=== PATIENT | female | born 1980 | race African-American/Black ===

== ENCOUNTER 2017-03-10 08:27 | Inpatient (IN) ==
[2017-03-10 08:59] LABS: HEMATOCRIT 22.4 % (37.0-47.0); MEAN CORPUSCULAR HEMOGLOBIN 14.8 pg (27.0-31.0); MEAN CORPUSCULAR HGB CONC 26.3 (31.8-35.4); MEAN CORPUSCULAR VOLUME 56.1 fl (81.0-99.0); PLATELET COUNT 329 10^3/uL (140-440); RED BLOOD COUNT 3.99 10^6/ul (4.20-5.40); WHITE BLOOD COUNT 7.09 K/ul (4.6-10.2)
[2017-03-10 09:04] LABS: HEMOGLOBIN 5.9 g/dl (12.0-16.0)
[2017-03-10 09:14] LABS: ALBUMIN 3.8 g/dL (3.4-5.0); ALBUMIN/GLOBULIN RATIO 1.27; ANION GAP 9.7; BILIRUBIN,TOTAL 0.44 mg/dL (0.00-1.20); BUN/CREATININE RATIO 15.51; CALCIUM 8.7 mg/dL (8.2-10.2); CREATININE 0.58 mg/dL (0.60-1.30); POTASSIUM 3.7 mmol/L (3.5-5.10); TOTAL PROTEIN 6.8 g/dL (6.4-8.2)
[2017-03-10 09:17] LABS: BILIRUBIN,URINE Negative (NEGATIVE); KETONES,URINE Negative (NEGATIVE); LEUKOCYTE ESTERASE ,URINE 3+ (NEGATIVE); NITRITE,URINE Negative (NEGATIVE); PH,URINE 6.5 (5-9); PROTEIN,URINE Negative (NEGATIVE); URINE, BLOOD Trace-intact (NEGATIVE)
[2017-03-10 09:18] LABS: ANISOCYTOSIS 2+ (NOT PRESENT); HYPOCHROMASIA 3+ (NOT PRESENT); MICROCYTOSIS 2+ (NOT PRESENT)
[2017-03-10 09:19] LABS: URINE PREGNANCY INTERNAL QC INTERNAL QC VALID
[2017-03-10 09:20] LABS: ADD URINE MICROSCOPIC YES
--- NOTE | 2017-03-10 10:09 | CT ---
EXAM: CT of the abdomen pelvis without contrast History: Abdominal pain. Comparison: CT abdomen pelvis 07/20/2016 Technique: Multiplanar CT images through the abdomen pelvis were obtained without the administratio n of IV contrast Findings: The intraventricular septum of the heart is visible suggesting anemia. Lung bases are fr ee of consolidation. No acute osseous abnormalities. No focal liver or splenic lesions. No discrete gallstones identified by CT. Small fat-containing u mbilical hernia, similar to the prior study. No tiffanie peripancreatic inflammation. No renal stones and no hydronephrosis. The appendix is not seen in its entirety but there are no secondary signs o f appendicitis. Stomach is not well distended. No bowel obstruction. No free air. No bladder wal l thickening. Small amount of pelvic free fluid. Adnexal structures are not well evaluated without contrast administration but demonstrate no grossly acute findings. Impression: 1. Small amount of fluid in the pelvis is nonspecific. 2. Small fat-containing umbilical hernia again noted. 3. The interventricular septum of the heart is visible suggesting anemia.
[2017-03-10 10:12] LABS: RETICULOCYTE % 0.77 %
--- NOTE | 2017-03-10 10:22 | ED.PDOC ---
General ED Provider: Dr. NGOZI MERRILL Chief Complaint: Abdominal Pain Stated Complaint: ABDOMINAL PAIN Time Seen by Physician: 08:30 (HISTORY OF ANEMIA) Mode of Arrival: Walk-In Information Source: Patient Exam Limitations: No limitations Nursing and Triage Documentation Reviewed and Agree: Yes GI Complaint Exam - Abdominal Pain Complaint/Exam Onset: Gradual Duration: 2 DAYS Symptoms Are: Still present Timing: Intermittent Initial Severity: Mild Current Severity: Mild Location of Pain: Suprapubic Character: Reports: Aching Aggravating: Reports: None Alleviating: Reports: None Associated Signs and Symptoms: Denies: Diaphoresis, Fever, Cough, Chest pain, Dizziness, Back pain, Constipation, Blood in stool, Dysuria, Urinary frequency, Decreased urine output, Decreased appetite, Vaginal bleeding, Vaginal discharge , Nausea, Vomiting, Diarrhea, Sore throat, Decreased activity Related History: Reports: Similar episode AAA Risk Factors: Reports: None Cardiac Risk Factors: Reports: None Ectopic Risk Factors: Reports: Maternal age >30 Ovarian Torsion Risk Factors: Reports: Ovarian cysts Surgical Obstruction Risk Factors: Reports: None Related Surgical History: Reports: None Patient Rh Status: Unknown Abdominal Findings: Present: None Differential Diagnoses: Appendicitis, Bowel Obstruction, Constipation, Gastroenteritis, Pancreatitis, Irritable Bowel Syndrome, Pneumonia, Renal Colic , Ureteral Stone, Ectopic , Ovarian Cyst Review of Systems - Review Of Systems Constitutional: Reports: No symptoms Eyes: Reports: No symptoms Ears, Nose, Mouth, Throat: Reports: No symptoms Respiratory: Reports: No symptoms Cardiac: Reports: No symptoms GI: Reports: Abdominal pain : Reports: No symptoms Musculoskeletal: Reports: No symptoms Skin: Reports: No symptoms Neurological: Reports: No symptoms Endocrine: Reports: No symptoms Hematologic/Lymphatic: Reports: No symptoms All Other Systems: Reviewed and Negative Past Medical History - Past Medical History Endocrine: Reports: Other (BLOOD TRANSFUSION) Cardiovascular: Reports: None Respiratory: Reports: None Hematological: Reports: None Gastrointestinal: Reports: None Genitourinary: Reports: Other Neuro/Psych: Reports: None Musculoskeletal: Reports: None Cancer: Reports: None Last Menstrual Period: 02/21 - Surgical History General Surgical History: Reports: Tubal ligation (later L tube and ovary (? right retied)), Other (LEFT OVARIES AND TUBE REMOVED DUE TO MASS THAT WAS FORMING INTO CANCER) - Family History Family History: Reports: Unknown - Social History Smoking Status: Current every day smoker, Light tobacco smoker Hx Substance Use: No Alcohol Screening: None Physical Exam - Physical Exam Appearance: Well-appearing, No pain distress, Well-nourished Eyes: CLOTILDE, EOMI, Conjunctiva clear ENT: Ears normal, Nose normal, Oropharynx normal Respiratory: Airway patent, Breath sounds clear, Breath sounds equal, Respirations nonlabored Cardiovascular: RRR, Pulses normal, No rub, No murmur GI/: Soft, Nontender, No masses, Bowel sounds normal, No Organomegaly Musculoskeletal: Normal strength, ROM intact, No edema, No calf tenderness Skin: Warm, Dry, Normal color Neurological: Sensation intact, Motor intact, Reflexes intact, Cranial nerves intact, Alert, Oriented Psychiatric: Affect appropriate, Mood appropriate Interpretation - Radiology Interpretation Radiology Interpretation By: Radiologist Radiology Results: No acute changes Physician Notification - Case Discussed Physician Notified: BETTE Time of Notification: 10:22 (ADMITT SAW PT IN THE ED ) Admit To: Inpatient Critical Care Note - Critical Care Note Total Time (mins): 0 Course - Course Hematology/Chemistry: 03/10/17 08:50 03/10/17 08:50 Orders, Labs, Meds: Lab Review 03/10/17 03/10/17 08:45 08:50 WBC 7.09 RBC 3.99 L Hgb 5.9 L* Hct 22.4 L MCV 56.1 L MCH 14.8 L MCHC 26.3 L RDW Coeff of Toña 24.5 H Plt Count 329 Reticulocyte % (Auto) 0.77 Neutrophils % (Manual) 68.0 Lymphocytes % (Manual) 31.0 Eosinophils % (Manual) 1.0 Microcytosis 2+ Absolute Retic 0.0306 Retic Hgb Equivalent 13.1 Sodium 138 Potassium 3.7 Chloride 107 Carbon Dioxide 25 Anion Gap 9.7 BUN 9 Creatinine 0.58 L Estimated GFR (MDRD) 143.00 BUN/Creatinine Ratio 15.51 Glucose 88 Calcium 8.7 Total Bilirubin 0.44 AST 13 L ALT 11 L Alkaline Phosphatase 42 Total Protein 6.8 Albumin 3.8 Globulin 3.0 Albumin/Globulin Ratio 1.27 Amylase 51 Lipase 22 Urine Color Yellow Urine Clarity Clear Urine pH 6.5 Ur Specific [place] 1.020 Urine Protein Negative Urine Glucose (UA) Negative Urine Ketones Negative Urine Blood Trace-intact Urine Nitrite Negative Urine Bilirubin Negative Urine Urobilinogen 0.2 Ur Leukocyte Esterase 3+ Urine Microscopic WBC 20-30 Ur Squamous Epith Cells 2-5 Urine Test Negative Orders Category Date Time Status ADMIT PATIENT INPATIENT .TO MEDSURG (MONITORED BED) ADMISSION 03/10/17 10: 06 Inactive EKG-(IP & OP ONLY) DAILY CARDIO 03/11/17 06:00 Stop Req EKG-(IP & OP ONLY) DAILY CARDIO 03/12/17 06:00 Stop Req EKG-(IP & OP ONLY) DAILY CARDIO 03/13/17 06:00 Stop Req TELEMETRY MONITORING TELE CARE 03/10/17 10:06 Inactive VITAL SIGNS Q8HR CARE 03/10/17 10:06 Inactive ED IV/MEDIPORT/POWERPORT .ONCE EMERGENCY 03/10/17 09:04 Completed AMYLASE Stat LAB 03/10/17 08:50 Completed CBC W/ AUTO DIFF DAILY@0600 LAB 03/11/17 06:00 Ordered CBC W/ AUTO DIFF DAILY@0600 LAB 03/12/17 06:00 Ordered CBC W/ AUTO DIFF DAILY@0600 LAB 03/13/17 06:00 Ordered CBC W/ AUTO DIFF DAILY@0600 LAB 03/14/17 06:00 Ordered CBC W/ AUTO DIFF DAILY@0600 LAB 03/15/17 06:00 Ordered CBC W/ AUTO DIFF DAILY@0600 LAB 03/16/17 06:00 Ordered CBC W/ AUTO DIFF DAILY@0600 LAB 03/17/17 06:00 Ordered CBC W/ AUTO DIFF DAILY@0600 LAB 03/18/17 06:00 Ordered CBC W/ AUTO DIFF DAILY@0600 LAB 03/19/17 06:00 Ordered CBC W/ AUTO DIFF DAILY@0600 LAB 03/20/17 06:00 Ordered CBC W/ AUTO DIFF DAILY@0600 LAB 03/21/17 06:00 Ordered CBC W/ AUTO DIFF DAILY@0600 LAB 03/22/17 06:00 Ordered CBC W/ AUTO DIFF DAILY@0600 LAB 03/23/17 06:00 Ordered CBC W/ AUTO DIFF DAILY@0600 LAB 03/24/17 06:00 Ordered CBC W/ AUTO DIFF DAILY@0600 LAB 03/25/17 06:00 Ordered CBC W/ AUTO DIFF DAILY@0600 LAB 03/26/17 06:00 Ordered CBC W/ AUTO DIFF DAILY@0600 LAB 03/27/17 06:00 Ordered CBC W/ AUTO DIFF DAILY@0600 LAB 03/28/17 06:00 Ordered CBC W/ AUTO DIFF DAILY@0600 LAB 03/29/17 06:00 Ordered CBC W/ AUTO DIFF DAILY@0600 LAB 03/30/17 06:00 Ordered CBC W/ AUTO DIFF Stat LAB 03/10/17 08:50 Completed COMPREHENSIVE METABOLIC PANEL DAILY@0600 LAB 03/11/17 06:00 Ordered COMPREHENSIVE METABOLIC PANEL DAILY@0600 LAB 03/12/17 06:00 Ordered COMPREHENSIVE METABOLIC PANEL DAILY@0600 LAB 03/13/17 06:00 Ordered COMPREHENSIVE METABOLIC PANEL DAILY@0600 LAB 03/14/17 06:00 Ordered COMPREHENSIVE METABOLIC PANEL DAILY@0600 LAB 03/15/17 06:00 Ordered COMPREHENSIVE METABOLIC PANEL DAILY@0600 LAB 03/16/17 06:00 Ordered COMPREHENSIVE METABOLIC PANEL DAILY@0600 LAB 03/17/17 06:00 Ordered COMPREHENSIVE METABOLIC PANEL DAILY@0600 LAB 03/18/17 06:00 Ordered COMPREHENSIVE METABOLIC PANEL DAILY@0600 LAB 03/19/17 06:00 Ordered COMPREHENSIVE METABOLIC PANEL DAILY@0600 LAB 03/20/17 06:00 Ordered COMPREHENSIVE METABOLIC PANEL DAILY@0600 LAB 03/21/17 06:00 Ordered COMPREHENSIVE METABOLIC PANEL DAILY@0600 LAB 03/22/17 06:00 Ordered COMPREHENSIVE METABOLIC PANEL DAILY@0600 LAB 03/23/17 06:00 Ordered COMPREHENSIVE METABOLIC PANEL DAILY@0600 LAB 03/24/17 06:00 Ordered COMPREHENSIVE METABOLIC PANEL DAILY@0600 LAB 03/25/17 06:00 Ordered COMPREHENSIVE METABOLIC PANEL DAILY@0600 LAB 03/26/17 06:00 Ordered COMPREHENSIVE METABOLIC PANEL DAILY@0600 LAB 03/27/17 06:00 Ordered COMPREHENSIVE METABOLIC PANEL DAILY@0600 LAB 03/28/17 06:00 Ordered COMPREHENSIVE METABOLIC PANEL DAILY@0600 LAB 03/29/17 06:00 Ordered COMPREHENSIVE METABOLIC PANEL DAILY@0600 LAB 03/30/17 06:00 Ordered COMPREHENSIVE METABOLIC PANEL Stat LAB 03/10/17 08:50 Completed FERRITIN Routine LAB 03/10/17 08:50 Received FOLATE Routine LAB 03/10/17 08:50 Received IRON AND TIBC Routine LAB 03/10/17 08:50 Received LIPASE Stat LAB 03/10/17 08:50 Completed MANUAL DIFFERENTIAL Stat LAB 03/10/17 08:50 Completed OCCULT BLOOD, STOOL Routine LAB 03/10/17 10:05 Uncollected RETIC COUNT Routine LAB 03/10/17 08:50 Completed TRANSFERRIN Routine LAB 03/10/17 08:50 Received URINALYSIS C & S IF INDICATED Stat LAB 03/10/17 08:45 Completed URINE CULTURE Stat LAB 03/10/17 08:45 Stop Req URINE Stat LAB 03/10/17 08:45 Completed VITAMIN B12 Routine LAB 03/10/17 08:50 Received 0.9 % Sodium Chloride [Saline Flush] MEDS 03/10/17 09:04 Discontinued 1 syr IVF PRN PRN Ceftriaxone Sodium [Rocephin] 1 gm MEDS 03/10/17 10:30 Discontinued 0.9 % Sodium Chloride [Sodium Chloride] 50 ml IV DAILY Sodium Chloride 0.9% [Sodium Chloride] 1,000 ml MEDS 03/10/17 10:30 Discontinued IV 75 mls/hr CT ABDOMEN/PELVIS WO CONTRAST Stat RADS 03/10/17 08:41 Completed Medications Discontinued Medications Generic Name Dose Route Start Last Admin Trade Name Freq PRN Reason Stop Dose Admin Sodium Chloride 1,000 mls @ 75 mls/hr 03/10/17 10:30 Sodium Chloride IV .[id number] YINA Ceftriaxone Sodium 1 gm/ 50 mls @ 75 mls/hr 03/10/17 10:30 Sodium Chloride IV DAILY YINA Sodium Chloride 1 syr 03/10/17 09:04 Saline Flush IVF PRN PRN To flush IV Vital Signs: Temp Pulse Resp BP Pulse Ox 03/10/17 08:28 98.0 F 75 20 105/63 99 Departure - Departure Time of Disposition: 10:23 Disposition: ADMITTED INPATIENT Discharge Problem: Abdominal pain Anemia Qualifiers: Anemia type: unspecified type Qualifier Code: (D64.9) Anemia, unspecified Instructions: Anemia (ED) Condition: Good Pt referred to PMD for follow-up: No Additional Instructions: Please call your Family Physician as soon as possible to schedule a follow-up appointment. Allergies/Adverse Reactions: Allergies No Known Allergies Allergy (Verified 03/10/17 08:36) Home Medications: Ambulatory Orders 1 [No Reported Medications] 07/20/16 Disposition Discussed With: Patient
[2017-03-10] MEDS ORDERED: SODIUM CHLORIDE 1,000 ML IV SCH (10:30)
[2017-03-10] MEDS ORDERED: ROCEPHIN 1 GM in SODIUM CHLORIDE 50 ML IV SCH (10:30)
[2017-03-10 11:15] LABS: FERRITIN 2.84 ng/mL (4.63-204.00); FOLATE 12.8 ng/mL (3.1-20.5)
[2017-03-10 11:30] VITALS: BMI 23.5
[2017-03-10] MEDS: PROTONIX PO SCH (13:29)
[2017-03-10] MEDS: SODIUM CHLORIDE 1,000 ML IV SCH (13:34)
[2017-03-10] MEDS ORDERED: SOLU-MEDROL 40 MG IVP STA (18:17)
[2017-03-10] MEDS ORDERED: TYLENOL PO STA (18:18)
[2017-03-10] MEDS ORDERED: BENADRYL 25 MG in SODIUM CHLORIDE 100 ML IV STA (18:18)
[2017-03-10] MEDS ORDERED: BENADRYL ONE (18:32)
[2017-03-11] MEDS: PROTONIX PO SCH (05:50)
[2017-03-11 15:16] LABS: BASOPHILS # (AUTO) 0.1 K/uL (0-0.2); BASOPHILS % (AUTO) 0.5 % (0.0-3.0); EOSINOPHILS # (AUTO) 0.1 K/ul (0.0-0.7); EOSINOPHILS % (AUTO) 0.7 % (0.0-7.0); HEMATOCRIT 32.5 % (37.0-47.0); HEMOGLOBIN 9.7 g/dl (12.0-16.0); IMMATURE GRANULOCYTE % (AUTO) 0.5 % (0.0-5.0); LYMPHOCYTES # (AUTO) 2.9 K/uL (0.60-3.4); LYMPHOCYTES % (AUTO) 22.1 (10.0-50.0); MEAN CORPUSCULAR HEMOGLOBIN 18.8 pg (27.0-31.0); MEAN CORPUSCULAR HGB CONC 29.8 (31.8-35.4); MONOCYTES # (AUTO) 1.3 K/uL (0.4-2.0); MONOCYTES % (AUTO) 10.1 (0-10); NEUTROPHILS # (AUTO) 8.8 K/ul (2.0-6.9); NEUTROPHILS % (AUTO) 66.1; PLATELET COUNT 249 10^3/uL (140-440); RED BLOOD COUNT 5.16 10^6/ul (4.20-5.40); WHITE BLOOD COUNT 13.25 K/ul (4.6-10.2)
[2017-03-11 15:25] LABS: ANISOCYTOSIS 1+ (NOT PRESENT); HYPOCHROMASIA 2+ (NOT PRESENT); MICROCYTOSIS 1+ (NOT PRESENT); POIKILOCYTOSIS 1+ (NOT PRESENT)
[2017-03-11] MEDS: SODIUM CHLORIDE 1,000 ML IV SCH (15:25)
[2017-03-11 15:34] LABS: ALBUMIN 3.9 g/dL (3.4-5.0); ALBUMIN/GLOBULIN RATIO 1.22; ANION GAP 10.4; BILIRUBIN,TOTAL 1.52 mg/dL (0.00-1.20); CREATININE 0.65 mg/dL (0.60-1.30); POTASSIUM 3.4 mmol/L (3.5-5.10); TOTAL PROTEIN 7.1 g/dL (6.4-8.2)
[2017-03-11 15:37] LABS: OCCULT BLOOD INTERNAL QC 1 INTERNAL QC VALID; OCCULT BLOOD SAMPLE 1 NEGATIVE (NEGATIVE)
[2017-03-12 01:57] LABS: OCCULT BLOOD INTERNAL QC 2 INTERNAL QC VALID; OCCULT BLOOD INTERNAL QC 3 INTERNAL QC VALID; OCCULT BLOOD SAMPLE 2 NO SPECIMEN RECEIVED (NEGATIVE); OCCULT BLOOD SAMPLE 3 NO SPECIMEN RECEIVED (NEGATIVE)
[2017-03-12 04:51] LABS: BASOPHILS # (AUTO) 0.1 K/uL (0-0.2); EOSINOPHILS # (AUTO) 0.1 K/ul (0.0-0.7); EOSINOPHILS % (AUTO) 1.7 % (0.0-7.0); HEMATOCRIT 29.9 % (37.0-47.0); HEMOGLOBIN 8.9 g/dl (12.0-16.0); IMMATURE GRANULOCYTE % (AUTO) 0.6 % (0.0-5.0); LYMPHOCYTES # (AUTO) 2.4 K/uL (0.60-3.4); LYMPHOCYTES % (AUTO) 29.2 (10.0-50.0); MEAN CORPUSCULAR HEMOGLOBIN 18.7 pg (27.0-31.0); MEAN CORPUSCULAR HGB CONC 29.8 (31.8-35.4); MEAN CORPUSCULAR VOLUME 62.9 fl (81.0-99.0); MONOCYTES # (AUTO) 0.7 K/uL (0.4-2.0); MONOCYTES % (AUTO) 8.3 (0-10); NEUTROPHILS # (AUTO) 4.9 K/ul (2.0-6.9); NEUTROPHILS % (AUTO) 59.2; PLATELET COUNT 182 10^3/uL (140-440); RED BLOOD COUNT 4.75 10^6/ul (4.20-5.40)
[2017-03-12 05:21] LABS: ALBUMIN 3.5 g/dL (3.4-5.0); ALBUMIN/GLOBULIN RATIO 1.25; ANION GAP 8.5; BILIRUBIN,TOTAL 0.8 mg/dL (0.00-1.20); BUN/CREATININE RATIO 18.75; CALCIUM 8.3 mg/dL (8.2-10.2); CREATININE 0.64 mg/dL (0.60-1.30); POTASSIUM 3.5 mmol/L (3.5-5.10); TOTAL PROTEIN 6.3 g/dL (6.4-8.2)
[2017-03-12] MEDS: PROTONIX PO SCH (06:06)
[2017-03-12 09:38] VITALS: BP 105/75; TEMP 97.9
--- NOTE | 2017-03-15 15:38 | PN ---
DATE OF SERVICE: 03/11/17 SUBJECTIVE: The patient was admitted with hgb of 5.9 and heavy menstrual bleeding. The patient had antibodies in the blood so we had to get the blood from the [facility] after checking the antibody details. We have given two units so far and one unit is running. Not weak or tired and abdominal pain is better. REVIEW OF SYSTEMS: CONSTITUTIONAL: No fever, no chills. HEENT: Normal. ENDOCRINE: No weight gain, no weight loss. CVS: No angina symptoms. No CHF symptoms. No palpitations. No atypical chest pain for CAD. No shortness of breath. No PND, no orthopnea. RESPIRATORY: No cough, no hemoptysis. GI: No nausea, no vomiting. No abdominal pain. : No hematuria. No polyuria. MUSCULOSKELETAL:. No joint swelling. PSYCHIATRIC: Not anxious. No depression. No suicidal thoughts. No homicidal thoughts. SKIN: Intact. No rash. PHYSICAL EXAMINATION: V/S: blood pressure 110/67, respiratory rate 18, heart rate 68 and temperature 97.5. HEENT: Normocephalic, atraumatic. Mucosa dry. Pallor positive. No icterus. NECK: Supple. No JVD, no carotid bruit. No lymphadenopathy. LUNGS: Decreased and Clear to auscultation. No rales or rhonchi. HEART: S1, S2 normal. No S3. No murmur, gallop or regurgitation. ABDOMEN: Soft, nontender. Bowel sounds active. No rigidity. No rebound or guarding. No CVA tenderness. EXTREMITIES: No clubbing, cyanosis or pedal edema. MUSCULOSKELETAL: No joint swelling. NEUROLOGIC: Awake, alert, oriented times three. No focal deficit. LYMPHATIC: No lymph nodes palpable. SKIN: Intact. Dry. LABS: Sodium 138, potassium 3.7, chloride 107, bicarb 27, BUN 9, creatinine 0.58, WBC 7.09, hgb 5.9, hct 22.4 and plt count 329. ASSESSMENT: 1. Severe symptomatic anemia 2. Heavy menstrual bleeding, history, getting blood transfusion 3. History of Ovarian cancer 4. Tubal ligation 5. Chronic headaches 6. Nicotine use PLAN: 1. Hgb and Hct 2. Out of bed to chair 3. IV fluids Will follow the patient in daily rounds. TIME SPENT: More than 30 minutes MTDD
--- NOTE | 2017-03-17 07:20 | HP ---
DATE OF SERVICE: 03/10/17 CHIEF COMPLAINT: Abdominal pain. HISTORY OF PRESENT ILLNESS: This is a 36-year-old female with history of anemia, who came to the emergency room with 3 to 4 days onset of lower abdominal pain, lower part of belly. No nausea or vomiting. No diarrhea. Had some burning and frequency of urination. Dr. Dickerson saw the patient and in the process of evaluation her hemoglobin was 5.9. On further questioning she did say that she was here late last year in July for abdominal pain and found to have severe anemia and menorrhagia was the diagnosis. She was supposed to see Dr. Mccord but she did not have any followup with her. She is still having heavy menstrual cycles when we asked her. No dizziness. No chest pain. No PND, no orthopnea. At that time, the patient is admitted to the hospital for blood transfusion and urinary tract infection. REVIEW OF SYSTEMS: CONSTITUTIONAL: Weakness. No fever, no chills. HEENT: Normal. ENDOCRINE: No weight gain; no weight loss. CVS: No chest pain. No PND, no orthopnea. No shortness of breath. No PND, no orthopnea. RESPIRATORY: No cough, no congestion. No hemoptysis. GI: Abdominal pain. No nausea or vomiting. : Frequency of urination and burning. No hematuria. MUSCULOSKELETAL: No joint swelling. PSYCHIATRIC: Not anxious. No depression. No suicidal thoughts. No homicidal thoughts. SKIN: Intact, no open lesions. PAST MEDICAL HISTORY: 1. Headaches 2. History of ovarian cancer PAST SURGICAL HISTORY: 1. Tubal ligation PERSONAL HISTORY: Does smoke. No alcohol use. No drug use. FAMILY HISTORY: Significant for breast cancer and cervical cancer. MEDICATIONS: (HOME) None ALLERGIES: NKDA PHYSICAL EXAMINATION: V/S: BP 105/63, respiratory rate 20, heart rate 75, temperature 98.0. HEENT: Atraumatic, normocephalic. No scleral icterus. Mucosa dry. Pallor positive. NECK: Supple. No JVD, no bruit. No lymphadenopathy. No thyromegaly. HEART: S1, S2 normal. No murmur. No cyanosis or clubbing. No ascites. LUNGS: Decreased breath sounds. Clear to auscultation. No rales or rhonchi. ABDOMEN: Soft with suprapubic tenderness present. Bowel sounds are active. No CVA tenderness. No rigidity or guarding. EXTREMITIES: No cyanosis, clubbing or pedal edema. MUSCULOSKELETAL: Normal joints, no swelling. SKIN: Intact; no open lesions. LYMPHATIC: No lymph nodes palpable. LABS: White count is 7.09, hemoglobin is 5.9, hematocrit 22.5, platelet count 329. Urine leukocyte esterace is positive. Nitrites negative. ASSESSMENT: 1. Severe anemia, rule out GI bleed, most likely from heavy menstrual cycle. 2. Urinary tract infection. 3. History of headaches. PLAN: 1. Admit the patient to the regular floor. 2. Type and crossmatch 3 units and transfuse three. 3. Protonix 40 mg p.o. daily. 4. Anemia profile. 5. Occult blood test. 6. IV fluids at 40 mL/hr. 7. I will follow with the patient in daily rounds. TIME SPENT: More than 70 minutes today. MARIAH
--- NOTE | 2017-03-23 13:40 | DS ---
DATE OF SERVICE: 03/12/17 FINAL DIAGNOSIS: 1. SEVERE PNEUMONIA STATUS POST 3 UNITS PRBC TRANSFUSION 2. MENORRHAGIA PENDING HYSTERECTOMY 3. HISTORY OF NICOTINE USE 4. HISTORY OF HEADACHES DISCHARGE INSTRUCTIONS: 1. Discharge the patient home 2. Iron pills three times a day 3. Followup at the [facility] for referral to [facility] for hysterectomy MEDICATIONS AT DISCHARGE: None NEW PRESCRIPTIONS: Iron pills t.i.d. DIET INSTRUCTIONS: Regular ACTIVITY: As much as tolerated SMOKING: N/A DISEASE SPECIFIC EDUCATION: Anemia and iron pills discussed, verbalized understanding. HOSPITAL COURSE: This is a 36-year-old female who came to the emergency room with weakness, tiredness and abdominal pain, found to have hemoglobin of 5.9. On further questioning, the patient has a history of severe bleed during menstruation and she is supposed to go to [facility] and have hysterectomy done. The patient did not have insulin so she did not go and see any [facility] but for the last one week she has been feeling weak, tired, light-headed with abdominal pain. She came to the emergency room and found to have hemoglobin of 5.9. CT was negative for any acute changes. At that time, she is admitted to the hospital and typed and crossed, screened, transfused 3. The patient did have antibodies which are K antibodies so we have to wait for some time to get blood from [facility]. After three units of blood transfusion, hemoglobin went up to 9.7 then came down today to 8.9. Otherwise the patient has clinically improved alot, not weak anymore, not pale looking anymore. The patient understands the importance of having gynecological followup and having hysterectomy. The patient will be scheduled followup at the [facility] and will be scheduled for evaluation for hysterectomy with [facility]. TIME SPENT: More than 55 minutes today MARIAH
== END 2017-03-12 12:33 | disposition home or self-care (01) | DRG 812 ==
LOC: ED 08:27 → MEDSURG B 10:44
PROVIDERS: ADMIT Emergency Medicine; ATTEND Emergency Medicine
PROC: 30233N1 Transfusion of Nonautologous Red Blood Cells into Peripheral Vein, Percutaneous Approach (ICD-10-PCS; principal; 2017-03-10)
PROC: 30233N1 Transfusion of Nonautologous Red Blood Cells into Peripheral Vein, Percutaneous Approach (ICD-10-PCS; 2017-03-11)
PROC: 30233N1 Transfusion of Nonautologous Red Blood Cells into Peripheral Vein, Percutaneous Approach (ICD-10-PCS; 2017-03-11)
DX: D64.9 Anemia, unspecified (principal); R10.30 Lower abdominal pain, unspecified; N92.0 Excessive and frequent menstruation with regular cycle; R51 Headache; Z72.0 Tobacco use; Z86.2 Personal history of diseases of the blood and blood-forming organs and certain disorders involving the immune mechanism; Z85.43 Personal history of malignant neoplasm of ovary; Z80.3 Family history of malignant neoplasm of breast
CPT/HCPCS: 36415; 36430; 80053; 81001; 81025; 82150; 82272; 82607; 82728; 82746; 83540; 83550; 83690; 84466; 85007; 85008; 85025; 85045; 86850; 86880; 86900; 86922; 87086; 99223; 99233; 99239; 99284

== ENCOUNTER 2017-03-23 11:41 | Outpatient (CLI) ==
[2017-03-23 13:23] LABS: BASOPHILS # (AUTO) 0.1 K/uL (0-0.2); BASOPHILS % (AUTO) 1.1 % (0.0-3.0); EOSINOPHILS # (AUTO) 0.4 K/ul (0.0-0.7); EOSINOPHILS % (AUTO) 4.1 % (0.0-7.0); HEMATOCRIT 29.4 % (37.0-47.0); HEMOGLOBIN 8.4 g/dl (12.0-16.0); IMMATURE GRANULOCYTE % (AUTO) 0.6 % (0.0-5.0); LYMPHOCYTES # (AUTO) 2.1 K/uL (0.60-3.4); LYMPHOCYTES % (AUTO) 19.8 (10.0-50.0); MEAN CORPUSCULAR HGB CONC 28.6 (31.8-35.4); MONOCYTES # (AUTO) 0.7 K/uL (0.4-2.0); MONOCYTES % (AUTO) 6.9 (0-10); NEUTROPHILS # (AUTO) 7.1 K/ul (2.0-6.9); NEUTROPHILS % (AUTO) 67.5; PLATELET COUNT 285 10^3/uL (140-440); WHITE BLOOD COUNT 10.47 K/ul (4.6-10.2)
[2017-03-23 14:05] LABS: ANISOCYTOSIS 3+ (NOT PRESENT); HYPOCHROMASIA 2+ (NOT PRESENT); MICROCYTOSIS 2+ (NOT PRESENT); POIKILOCYTOSIS 2+ (NOT PRESENT); POLYCHROMASIA 1+ (NOT PRESENT); SCHISTOCYTES 1+ (NOT PRESENT)
[2017-03-23 14:11] LABS: ALBUMIN 3.6 g/dL (3.4-5.0); ALBUMIN/GLOBULIN RATIO 1.09; ANION GAP 13.8; BILIRUBIN,TOTAL 0.15 mg/dL (0.00-1.20); BUN/CREATININE RATIO 11.47; CALCIUM 8.9 mg/dL (8.2-10.2); CHOL/HDL RATIO 2.6 (4.5-5.5); CREATININE 0.61 mg/dL (0.60-1.30); POTASSIUM 3.8 mmol/L (3.5-5.10); TOTAL PROTEIN 6.9 g/dL (6.4-8.2)
== END 2017-03-23 11:42 | disposition home or self-care (01) ==
LOC: LAB 11:41
PROVIDERS: ATTEND Nurse Practitioner Family
DX: D64.9 Anemia, unspecified (principal); Z72.0 Tobacco use
CPT/HCPCS: 36415; 80053; 80061; 84443; 85008; 85025

== ENCOUNTER 2017-04-26 12:36 | Outpatient (CLI) ==
[2017-04-26 13:51] LABS: BASOPHILS # (AUTO) 0.1 K/uL (0-0.2); EOSINOPHILS # (AUTO) 0.2 K/ul (0.0-0.7); EOSINOPHILS % (AUTO) 2.1 % (0.0-7.0); HEMATOCRIT 26.8 % (37.0-47.0); HEMOGLOBIN 7.8 g/dl (12.0-16.0); IMMATURE GRANULOCYTE % (AUTO) 0.6 % (0.0-5.0); LYMPHOCYTES % (AUTO) 17.6 (10.0-50.0); MEAN CORPUSCULAR HGB CONC 29.1 (31.8-35.4); MEAN CORPUSCULAR VOLUME 65.2 fl (81.0-99.0); MONOCYTES # (AUTO) 0.9 K/uL (0.4-2.0); MONOCYTES % (AUTO) 7.7 (0-10); NEUTROPHILS # (AUTO) 7.9 K/ul (2.0-6.9); PLATELET COUNT 462 10^3/uL (140-440); RED BLOOD COUNT 4.11 10^6/ul (4.20-5.40); WHITE BLOOD COUNT 11.06 K/ul (4.6-10.2)
[2017-04-26 15:05] LABS: HYPOCHROMASIA 2+ (NOT PRESENT); MICROCYTOSIS 3+ (NOT PRESENT); POIKILOCYTOSIS 2+ (NOT PRESENT); POLYCHROMASIA 1+ (NOT PRESENT)
[2017-04-26 15:08] LABS: ANISOCYTOSIS 1+ (NOT PRESENT)
== END 2017-04-26 12:37 | disposition home or self-care (01) ==
LOC: LAB 12:36
PROVIDERS: ATTEND Nurse Practitioner Family
DX: D64.9 Anemia, unspecified (principal)
CPT/HCPCS: 36415; 85008; 85025; 86850; 86880; 86900; 86922

== ENCOUNTER 2017-04-26 17:27 | Outpatient (CLI) | END 2017-04-26 17:28 | disposition home or self-care (01) | LOC: OUTPT 17:27 → LAB 17:28 | PROVIDERS: ATTEND Emergency Medicine | DX: D64.9 Anemia, unspecified (principal) | CPT/HCPCS: 36415; 86850; 86880; 86900; 86922 ==

== ENCOUNTER 2017-04-28 09:53 | Outpatient (CLI) ==
[2017-04-28 14:27] VITALS: BP 102/62; TEMP 98.1
== END 2017-04-28 09:54 | disposition home or self-care (01) ==
LOC: OUTPT 09:53
PROVIDERS: ATTEND Emergency Medicine
DX: D64.9 Anemia, unspecified (principal)
CPT/HCPCS: 36415; 36430; 86850; 86880; 86900; 86922; 96365; 96366

== ENCOUNTER 2017-05-10 15:40 | Outpatient (CLI) ==
[2017-05-10 15:56] LABS: BASOPHILS # (AUTO) 0.1 K/uL (0-0.2); BASOPHILS % (AUTO) 0.7 % (0.0-3.0); EOSINOPHILS # (AUTO) 0.3 K/ul (0.0-0.7); EOSINOPHILS % (AUTO) 3.1 % (0.0-7.0); IMMATURE GRANULOCYTE % (AUTO) 0.4 % (0.0-5.0); LYMPHOCYTES % (AUTO) 27.1 (10.0-50.0); MEAN CORPUSCULAR HEMOGLOBIN 19.1 pg (27.0-31.0); MEAN CORPUSCULAR HGB CONC 28.6 (31.8-35.4); MONOCYTES # (AUTO) 0.7 K/uL (0.4-2.0); MONOCYTES % (AUTO) 6.6 (0-10); NEUTROPHILS # (AUTO) 6.8 K/ul (2.0-6.9); NEUTROPHILS % (AUTO) 62.1; RED BLOOD COUNT 4.18 10^6/ul (4.20-5.40); WHITE BLOOD COUNT 11.01 K/ul (4.6-10.2)
[2017-05-10 16:07] LABS: ANISOCYTOSIS 3+ (NOT PRESENT); HYPOCHROMASIA 2+ (NOT PRESENT); MICROCYTOSIS 3+ (NOT PRESENT); PLATELET COUNT 168 10^3/uL (140-440); POLYCHROMASIA 2+ (NOT PRESENT)
== END 2017-05-10 15:41 | disposition home or self-care (01) ==
LOC: LAB 15:40
PROVIDERS: ATTEND Nurse Practitioner Family
DX: D64.9 Anemia, unspecified (principal)
CPT/HCPCS: 36415; 85008; 85025

== ENCOUNTER 2017-05-23 10:51 | Outpatient (CLI) ==
--- NOTE | 2017-05-23 11:27 | DI ---
EXAM: Three views of the cervical spine HISTORY: Pain post fall. COMPARISON: None FINDINGS: There is no acute compression fracture or subluxation. There is mild straightening of the cervical spine. Facets and posterior processes are normal. The odontoid process is unremarkable. There is no lytic or blastic lesion. IMPRESSION: Mild straightening of the cervical spine with no acute abnormality or compression fract ure.
--- NOTE | 2017-05-23 11:28 | DI ---
EXAM: Three views of the lumbar spine HISTORY: Pain post fall. COMPARISON: None FINDINGS: There is no acute compression fracture or subluxation. Lumbosacral junction is intact. T here is no lytic or blastic lesion. Facets and posterior processes are unremarkable. Soft tissues are normal. IMPRESSION: No acute compression fracture or subluxation.
--- NOTE | 2017-05-23 11:28 | DI ---
EXAM: Views of the thoracic spine HISTORY: Fall TECHNIQUE: AP lateral views and swimmers lateral of the thoracic spine were obtained. FINDINGS: No acute fractures are seen. The alignment is normal. The intervertebral discs demonstr ate normal height. The paraspinal soft tissues are normal. IMPRESSION: No evidence of acute fracture seen within the thoracic spine.
--- NOTE | 2017-05-23 11:29 | DI ---
EXAM: Right hip two-view HISTORY: Pain, fall COMPARISON: None FINDINGS: The bones are normal. The hip joint is normal. No focal soft tissue abnormality. IMPERSSION: Normal examination.
== END 2017-05-23 10:52 | disposition home or self-care (01) ==
LOC: RAD 10:51
PROVIDERS: ATTEND Nurse Practitioner Family
DX: M54.6 Pain in thoracic spine (principal); M54.5 Low back pain; M54.2 Cervicalgia; M25.551 Pain in right hip; W19.XXXA Unspecified fall, initial encounter

== ENCOUNTER 2017-11-11 10:43 | Emergency (ER) ==
[2017-11-11 10:57] VITALS: BP 117/69; TEMP 97.2; BMI 23.1
--- NOTE | 2017-11-11 11:34 | ED.PDOC ---
General ED Provider: Dr. DEON MCADAMS Chief Complaint: Vaginal Bleeding Stated Complaint: Pt is a 37 year old female who comes to the ER with chronic abnormal vaginal bleeding. States has been bleeding x 14 days however bleeing stopped this AM. She comes in because she is concerned that she. She also complains of feet swelling. Missed an OBGYN Apt at [facility]. She moved to the area reacently. Has had partial hystorectomy on the left due to large ovarian cyst. Admits to Diet high in processed foods/ sodium. States until yesterday she has been using 5 Tampoons per day for 14 days. Time Seen by Physician: 11:31 Mode of Arrival: Walk-In Information Source: Patient Exam Limitations: No limitations [facility] Nursing and Triage Documentation Reviewed and Agree: Yes Reviewed sepsis parameters & appropriate labs ordered?: Yes System Inflammatory Response Syndrome: Not Applicable Sepsis Protocol: For patient's 13 years and over: Temp is 96.8 and below OR 101 and greater Pulse >90 BPM Resp >20/minute Acutely Altered Mental Status Are patient's symptoms suggestive of a new infection, such as: -Pneumonia -Skin, Soft Tissue -Endocarditis -UTI -Bone, Joint Infection -Implantable Device -Acute Abdominal Infection -Wound Infection -Meningitis -Blood Stream Catheter Infection -Unknown Musculoskeletal Complaint Exam - Lower Extremity Complaint/Exam Location of Pain: Reports: Ankle, Leg Mechanism of Injury: Reports: No known trauma Onset/Duration: 1 week Symptoms Are: Still present Location: Reports: Diffuse Alleviating: Reports: None Aggravating: Reports: None Able to Bear Weight: Yes Associated Signs and Symptoms: Reports: Swelling DVT Risk Factors: Reports: None Septic Arthritis Risk Factors: Reports: None Related Surgical History: Reports: None Lower Extremity Findings: Present: Swelling (bilateral. ) NV Bundle Intact Distal to Injury: No Compartment Syndrome Risk Factors: Absent: Pain, Paralysis, Pallor, Pulselessness, Paresthesias Differential Diagnoses: Other (Edema ) Review of Systems - Review Of Systems Constitutional: Reports: Weakness Eyes: Reports: No symptoms Ears, Nose, Mouth, Throat: Reports: No symptoms Respiratory: Reports: No symptoms Cardiac: Reports: No symptoms GI: Reports: No symptoms : Reports: No symptoms Musculoskeletal: Reports: Joint swelling Skin: Reports: No symptoms Neurological: Reports: No symptoms Endocrine: Reports: No symptoms Hematologic/Lymphatic: Reports: No symptoms All Other Systems: Reviewed and Negative Past Medical History - Past Medical History Endocrine: Reports: Other (BLOOD TRANSFUSION) Cardiovascular: Reports: None Respiratory: Reports: None Hematological: Reports: None Gastrointestinal: Reports: None Genitourinary: Reports: Other (Dysfunctional Uterine bleeding. ) Neuro/Psych: Reports: None Musculoskeletal: Reports: None Cancer: Reports: None Last Menstrual Period: 2 WEEKS - Surgical History General Surgical History: Reports: Tubal ligation (later L tube and ovary (? right retied)), Other (LEFT OVARIES AND TUBE REMOVED DUE TO MASS THAT WAS FORMING INTO CANCER) - Family History Family History: Reports: Unknown - Social History Smoking Status: Current every day smoker, Light tobacco smoker Hx Substance Use: No Alcohol Screening: None Physical Exam - Physical Exam Appearance: Ill-appearing Ill-appearing: Mild Eyes: Conjunctiva pale Neck: Supple Respiratory: Airway patent, Breath sounds clear, Breath sounds equal, Respirations nonlabored Cardiovascular: RRR, Pulses normal, No rub, No murmur GI/: Soft, Nontender, No masses, Bowel sounds normal, No Organomegaly Musculoskeletal: ROM intact, Edema Skin: Warm, Dry Neurological: Sensation intact, Motor intact, Reflexes intact Psychiatric: Anxious Critical Care Note - Critical Care Note Total Time (mins): 0 Course - Course Hematology/Chemistry: 11/11/17 11:30 11/11/17 11:30 Orders, Labs, Meds: Lab Review 11/11/17 11/11/17 11:30 11:30 WBC 8.06 RBC 3.11 L Hgb 4.6 L* Hct 17.9 L* MCV 57.6 L MCH 14.8 L MCHC 25.7 L RDW Coeff of Toña 22.2 H Plt Count 156 Immature Gran % (Auto) 0.4 Neut % (Auto) 69.9 Lymph % (Auto) 20.7 [place]berry % (Auto) 6.3 Eos % (Auto) 2.1 Baso % (Auto) 0.6 Immature Gran # (Auto) 0.0 Neut # 5.6 Lymph # 1.7 Newberry # 0.5 Eos # 0.2 Baso # 0.1 Hypochromasia 3+ Anisocytosis 2+ Microcytosis 3+ Sodium 140 Potassium 3.2 L Chloride 110 H Carbon Dioxide 25 Anion Gap 8.2 BUN 6 L Creatinine 0.57 L Estimated GFR (MDRD) 145.00 BUN/Creatinine Ratio 10.52 Glucose 98 Calcium 8.6 Total Bilirubin < 0.3 AST 14 L ALT 11 L Alkaline Phosphatase 49 Total Protein 6.3 L Albumin 3.3 L Globulin 3.0 Albumin/Globulin Ratio 1.10 Orders Category Date Time Status ADMIT PATIENT INPATIENT .TO [facility] (MONITORED BED) ADMISSION 11/11/17 11: 58 Active ACTIVITY .Up ad Shahnaz CARE 11/11/17 11:59 Active INTAKE & OUTPUT Q8HR CARE 11/11/17 11:58 Active TELEMETRY MONITORING TELE CARE 11/11/17 11:59 Active VITAL SIGNS Q4HR CARE 11/11/17 11:59 Active VTE PREVENTION .SCD On AM/Off PM CARE 11/11/17 11:58 Active REGULAR DIET DIETARY 11/11/17 Lunch Ordered BASIC METABOLIC PANEL DAILY@0600 LAB 11/12/17 06:00 Ordered BASIC METABOLIC PANEL DAILY@0600 LAB 11/13/17 06:00 Ordered CBC W/ AUTO DIFF DAILY@0600 LAB 11/12/17 06:00 Ordered CBC W/ AUTO DIFF DAILY@0600 LAB 11/13/17 06:00 Ordered CBC W/ AUTO DIFF Stat LAB 11/11/17 11:30 Completed CMP [COMPREHENSIVE METABOLIC PANEL] Stat LAB 11/11/17 11:30 Completed PACKED CELLS Stat LAB 11/11/17 12:18 Received RBC MORPHOLOGY Stat LAB 11/11/17 11:30 Completed Acetaminophen [Tylenol] MEDS 11/11/17 11:58 Active 650 mg PO Q4H PRN Diphenhydramine Inj [Benadryl] MEDS 11/11/17 11:58 Active 25 mg IVP ONCE PRN Furosemide [Lasix] MEDS 11/11/17 11:58 Active 20 mg IVP PRN PRN Ondansetron HCl/Pf [Zofran 4 mg/2 ml] MEDS 11/11/17 11:58 Active 4 mg IVP Q6H PRN RESUSCITATION STATUS Routine OTHERS 11/11/17 11:58 Ordered Medications Generic Name Dose Route Start Last Admin Trade Name Freq PRN Reason Stop Dose Admin Acetaminophen 650 mg 11/11/17 11:58 Tylenol PO Q4H PRN Fever > 102 Diphenhydramine HCl 25 mg 11/11/17 11:58 Benadryl IVP ONCE PRN Transfusion reaction Furosemide 20 mg 11/11/17 11:58 Lasix IVP PRN PRN AFTER EVERY UNIT OF BLOOD Ondansetron HCl 4 mg 11/11/17 11:58 Zofran 4 Mg/2 Ml IVP Q6H PRN Nausea/vomiting. Vital Signs: Temp Pulse Resp BP Pulse Ox 11/11/17 10:49 97.2 F L 87 20 117/69 100 Departure - Departure Time of Disposition: 12:06 Disposition: HOME SELF-CARE Discharge Problem: Bleeding from vagina, Bilateral lower extremity edema, Dysfunctional uterine bleeding Anemia Qualifiers: Anemia type: iron deficiency Iron deficiency anemia type: chronic blood loss Qualified Code(s): D50.0 - Iron deficiency anemia secondary to blood loss ( chronic) Condition: Fair Pt referred to PMD for follow-up: No (admitted ) Allergies/Adverse Reactions: Allergies No Known Allergies Allergy (Verified 11/11/17 10:55) Home Medications: Ambulatory Orders 1 [No Reported Medications] 07/20/16
[2017-11-11] MEDS ORDERED: ZOFRAN 4 MG/2 ML IVP PRN (11:58)
[2017-11-11] MEDS ORDERED: TYLENOL PO PRN (11:58)
[2017-11-11] MEDS ORDERED: LASIX IVP PRN (11:58)
[2017-11-11] MEDS ORDERED: BENADRYL IVP PRN (11:58)
== END 2017-11-11 15:00 | disposition home or self-care (01) ==
LOC: ED 10:43 → UNDOADMIN 12:02 → MEDSURG B 12:02
DX: N93.8 Other specified abnormal uterine and vaginal bleeding (principal); D50.0 Iron deficiency anemia secondary to blood loss (chronic); R60.0 Localized edema; F17.210 Nicotine dependence, cigarettes, uncomplicated
CPT/HCPCS: 36415; 80053; 85008; 85025; 86850; 86880; 86900; 86922; 99285

== ENCOUNTER 2017-11-11 15:18 | Outpatient (CLI) ==
[2017-11-11 10:57] VITALS: BMI 23.1
== END 2017-11-11 15:19 | disposition short-term general hospital (02) ==
LOC: AMBL 15:18
PROVIDERS: ATTEND Internal Medicine Geriatric Medicine
DX: N99.820 Postprocedural hemorrhage of a genitourinary system organ or structure following a genitourinary system procedure (principal)

== ENCOUNTER 2018-02-22 09:17 | Emergency (ER) ==
[2018-02-22 09:22] VITALS: BP 123/79; TEMP 97.3; BMI 24.9
--- NOTE | 2018-02-22 11:55 | ED.PDOC ---
General ED Provider: Dr. GRACIELA MERIDA Chief Complaint: Vaginal Bleeding Stated Complaint: Stated had Total abdominal Hysterectomy with BSO 2 months ago . PATIENT STATES [facility]ANCIS[facility] IN [facility] PERFORMED HER HYSTERECTOMY. This morning developed lower abdominal cramping and when going to bathroom noted to have blood on tissue when she wiped. Amount limited and scanty at present. Denies other symptoms Time Seen by Physician: 09:45 Mode of Arrival: Walk-In Information Source: Patient Nursing and Triage Documentation Reviewed and Agree: Yes Reviewed sepsis parameters & appropriate labs ordered?: Yes System Inflammatory Response Syndrome: Not Applicable Sepsis Protocol: For patient's 13 years and over: Temp is 96.8 and below OR 101 and greater Pulse >90 BPM Resp >20/minute Acutely Altered Mental Status Are patient's symptoms suggestive of a new infection, such as: -Pneumonia -Skin, Soft Tissue -Endocarditis -UTI -Bone, Joint Infection -Implantable Device -Acute Abdominal Infection -Wound Infection -Meningitis -Blood Stream Catheter Infection -Unknown System Inflammatory Response Syndrome: Not Applicable [employer] Complaint Exam - Vaginal Bleeding Complaint/Exam Onset/Duration: This AM Symptoms Are: Still present Timing: Intermittent Initial Severity: Moderate Current Severity: None Character: Reports: Dark red Aggravating: Reports: None Alleviating: Reports: None Associated Signs and Symptoms: Reports: Cramping. Denies: Dizziness, Lightheadedness, Pale, UTI symptoms Related History: Denies: Similar episode Ectopic Risk Factors: Reports: None, Maternal age >30 Related Surgical History: Reports: AMARILIS, BSO Vulva Exam: Present: Normal Findings Vaginal Exam: Present: Discharge, Blood (scanty light) Adnexal Exam: Present: Normal Findings (post hysterectomy findings) Review of Systems - Review Of Systems Constitutional: Reports: No symptoms Eyes: Reports: No symptoms Ears, Nose, Mouth, Throat: Reports: No symptoms Respiratory: Reports: No symptoms Cardiac: Reports: No symptoms GI: Reports: No symptoms : Reports: No symptoms Musculoskeletal: Reports: No symptoms Skin: Reports: No symptoms Neurological: Reports: No symptoms Endocrine: Reports: No symptoms Hematologic/Lymphatic: Reports: No symptoms All Other Systems: Reviewed and Negative Past Medical History - Past Medical History Previously Healthy: Yes Endocrine: Reports: Other (BLOOD TRANSFUSION) Cardiovascular: Reports: None Respiratory: Reports: None Hematological: Reports: None Gastrointestinal: Reports: None Genitourinary: Reports: Other (Dysfunctional Uterine bleeding. ) Neuro/Psych: Reports: None Musculoskeletal: Reports: None Cancer: Reports: None Last Menstrual Period: N/A - Surgical History General Surgical History: Reports: Tubal ligation (later L tube and ovary (? right retied)), Other (LEFT OVARIES AND TUBE REMOVED DUE TO MASS THAT WAS FORMING INTO CANCER) - Family History Family History: Reports: Unknown - Social History Smoking Status: Current every day smoker, Light tobacco smoker Hx Substance Use: No Alcohol Screening: None - Immunizations Tetanus Shot up to Date: Yes Physical Exam - Physical Exam Appearance: Well-appearing, No pain distress, Well-nourished Eyes: CLOTILDE, EOMI, Conjunctiva clear ENT: Ears normal, Nose normal, Oropharynx normal Respiratory: Airway patent, Breath sounds clear, Breath sounds equal, Respirations nonlabored Cardiovascular: RRR, Pulses normal, No rub, No murmur GI/: Soft (no palpable abnormalities or noted tenderness. NO BLOOD on EXAM GLOVE), Nontender, No masses, Bowel sounds normal, No Organomegaly Musculoskeletal: Normal strength, ROM intact, No edema, No calf tenderness Skin: Warm, Dry, Normal color Neurological: Sensation intact, Motor intact, Reflexes intact, Cranial nerves intact, Alert, Oriented Psychiatric: Affect appropriate, Mood appropriate Critical Care Note - Critical Care Note Total Time (mins): 0 Course - Course Vital Signs: Temp Pulse Resp BP Pulse Ox 02/22/18 09:18 97.3 F L 74 16 123/79 99 Departure - Departure Time of Disposition: 11:50 Disposition: HOME SELF-CARE Discharge Problem: Postoperative vaginal bleeding following genitourinary procedure, Bleeding from vagina Instructions: Hysterectomy (DC) Condition: Good Pt referred to PMD for follow-up: Yes (Has an appointment Tomorrow ) IPMP verified?: No Additional Instructions: Resume normal activities Remain at pelvic rest/ Monitor further bleeding Follow up with PCP tomorrow as previoulsy planned Allergies/Adverse Reactions: Allergies No Known Allergies Allergy (Verified 02/22/18 09:22) Home Medications: Ambulatory Orders Estrogens, Conjugated [Premarin] 0.625 mg PO DAILY 02/22/18
== END 2018-02-22 12:00 | disposition home or self-care (01) ==
LOC: ED 09:17
DX: N99.820 Postprocedural hemorrhage of a genitourinary system organ or structure following a genitourinary system procedure (principal); R10.30 Lower abdominal pain, unspecified; F17.210 Nicotine dependence, cigarettes, uncomplicated
CPT/HCPCS: 99282